=== PATIENT | female | born 1985 | race African-American/Black ===

== ENCOUNTER 2021-03-12 11:19 | Emergency (ER) | payer BC, OTHER ==
[~2021-03-12] VITALS: Ht 165.1 cm; Wt 91.6 kg
--- NOTE | 2021-03-12 11:26 | NUR ---
ARRIVAL PT ARRIVED TO ED WITH C/O WORRY FOR ECTOPIC . PT REPORTS ON FEB 01 2020 SHE HAD AN ECTOPIC WITH RIGHT FALLOPIAN TUBE REMOVED. PT REPORTS SHE HAS SINCE HAD 2 POSITIVE HOME TESTS. PT DENIES ANY PAIN, DISCOMFORT, OR VAGINAL BLEEDING. BEDSIDE MONITORS APPLIED. VITAL SIGNS STABLE. BED IN LOW LOCKED POSITION.
[2021-03-12 11:41] VITALS: BP 139/101
[2021-03-12 11:46] VITALS: BP 139/101
--- NOTE | 2021-03-12 12:12 | ER.PDOC ---
General Chief Complaint: Female Urogenital Problems Stated Complaint: FEMALE Time seen by MD: 12:07 Source: patient Exam Limitations: no limitations History of Present Illness Initial Comments Patient had a positive test at home and came here requesting for an ultrasound to rule out an ectopic. She said her last was an ectopic and she wants to make sure this one is not also an ectopic. She does not have abdominal pain or vaginal bleeding. She just wants an OB ultrasound for checkup. Associated Symptoms: denies symptoms Allergies: Coded Allergies: No Known Allergies (Unverified , 03/12/21) Past Medical History Medical History: other Surgical History: other Family History Significant Family History: no pertinent family hx Social History Alcohol Use: occassionally Drug Use: none Review of Systems Constitutional: no symptoms reported EENTM: no symptoms reported Respiratory: no symptoms reported Cardiovascular: no symptoms reported Gastrointestinal: see HPI All Other Systems: Reviewed and Negative Physical Exam General Appearance: No Apparent Distress, WD/WN Neck: nml inspection, non-tender Cardiovascular/Respiratory: Regular Rate, Rhythm, No M/R/G, Normal Peripheral Pulses, No JVD, Normal Breath Sounds, No Respiratory Distress Abdomen: Normal Bowel Sounds, Non Tender, Soft, No Organomegaly, No Pulsatile Mass Back: nml inspection Extremities: Normal Range of Motion, Non-Tender, Normal Inspection, No Pedal Edema, No Calf Tenderness, Normal Capillary Refill 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 ER DEPART Departure Time of Disposition: 12:11 Disposition: 01 HOME / SELF CARE / HOMELESS Impression: Primary Impression: Condition: Stable Referrals: RISA UMAÑA VISION SPECIALIST (PCP) PRIMARY CARE PROVIDER Additional Instructions: F/U with your OB Provider Duration or Time Spent with Pa: 10 min Problem Qualifiers Primary Impression: Weeks of gestation: less than 8 weeks Qualified Codes: Z3A.01 - Less than 8 weeks gestation of HU ARORA MD Mar 12, 2021 12:12
== END 2021-03-12 12:15 ==
LOC: ER 11:19
DX: Z34.91 Encounter for supervision of normal pregnancy, unspecified, first trimester (principal); Z3A.01 Less than 8 weeks gestation of pregnancy
CPT/HCPCS: 81025; 99283

== ENCOUNTER 2021-06-01 11:34 | Emergency (ER) | payer BC, MEDICAID ==
[~2021-06-01] VITALS: Ht 165.1 cm; Wt 90.7 kg
[2021-06-01 11:50] VITALS: BP 128/61
[2021-06-01 12:28] LABS: BILIRUBIN,URINE NEGATIVE (NEGATIVE); UA COLOR YELLOW
--- NOTE | 2021-06-01 12:59 | ER.PDOC ---
General Chief Complaint: less 20 wks Stated Complaint: 16 WEEKS ,VAGINAL BLEED TRAVEL OUT OF US: No Time seen by MD: 11:50 Source: patient Exam Limitations: no limitations History of Present Illness Initial Comments This 35-year-old G6, P3 black female comes in with complaint of spotting. This patient indicates that she has had spotting off and on for the whole . She has seen an GERIATRICS PHYSICIAN doctor down [facility] where she lives. She states that the OB doctor there was not worried about her light spotting. She denies actually bleeding. This is just some spotting that she finds some blood on her toilet tissue after going to the bathroom. This is not changed from anything before I am not quite sure why she came in today. Patient little bit tearful and anxious so we will just need to check the baby and make sure she is okay. She had an ultrasound done 4 weeks ago which was the 12-week ultrasound and everything was good. Patient does not know her blood type. We will have to check it here as we could not get in touch with her garnett fixer in [place]. Timing/Duration: other (Intermittent throughout the entire ) Severity: mild Associated Symptoms: other (She has had some frequency with urination but denies actual pain with urination) Allergies: Coded Allergies: No Known Allergies (Unverified , 03/12/21) Past Medical History Medical History: no pertinent history Surgical History: other Social History Smoking: non-smoker Alcohol Use: none Drug Use: none Review of Systems Genitourinary: see HPI All Other Systems: Reviewed and Negative Physical Exam General Appearance: No Apparent Distress, WD/WN EENT: eyes nml inspection Neck: Non-Tender, Full Range of Motion Respiratory: chest non-tender, lungs clear, normal breath sounds, no respiratory distress, no accessory muscle use CVS: reg rate & rhythm, no murmur, no gallop, pulses nml Gastrointestinal: Normal Bowel Sounds, No Pulsatile Mass, Non Tender, Other (I obtain heart tones at 168 beats a minute) Back: Normal Inspection Extremities: Normal Range of Motion 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, No Motor/Sensory Deficits, Alert, Normal Mood/Affect, Oriented x 3 Skin: Normal Color, Warm/Dry Lymphatic: No Adenopathy Results/Orders Results/Orders Orders - MIKIE STOCKTON MD Urinalysis (06/01/21 12:05) Abo/Rh Type (06/01/21 12:05) Urine Culture (06/01/21 12:11) Vital Signs Date Time Temp Pulse Resp B/P (MAP) Pulse Ox O2 Delivery O2 Flow Rate FiO2 06/01/21 11:50 98.8 88 18 06/01/21 11:50 98.8 88 18 98 06/01/21 11:50 98.8 88 18 128/61 (83) 98 Room Air Laboratory Tests Test 06/01/21 12:11 Urine Collection Type RANDOM Urine Color YELLOW Urine Appearance CLOUDY Urine Bilirubin NEGATIVE (NEGATIVE) Urine Ketones NEGATIVE (NEGATIVE) Urine Specific [place] >=1.030 (1.005-1.030) Urine pH 6.0 (4.5-8.0) Urine Protein 30 mg/dL (NEGATIVE) H Urine Urobilinogen 1.0 E.U./dL (0.2) Urine Nitrate NEGATIVE (NEGATIVE) Urine Leukocyte Esterase LARGE (NEGATIVE) H Urine Glucose (Auto)(UA) NEGATIVE (NEGATIVE) Urine Blood LARGE (NEGATIVE) H Urine RBC 2-5 RBC/HPF (NONE SEEN) Urine WBC TNTC WBC/HPF (0-2) H Urine Squamous Epithelial Cells MANY #/HPF (FEW) Urine Bacteria MANY (NONE SEEN) H Urine Other #/HPF Blood Bank Test 06/01/21 12:23 Blood Type O POSITIVE Progress Progress Urinalysis showed too numerous to count WBCs and nitrite positive. This is consistent with a urinary tract infection. Blood type was O+ ER DEPART Departure Time of Disposition: 13:08 Disposition: 01 HOME / SELF CARE / HOMELESS Impression: Primary Impression: UTI (urinary tract infection) during Additional Impression: Spotting affecting in second trimester Condition: Stable Referrals: PCP,UNKNOWN (PCP) PRIMARY CARE PROVIDER Duration or Time Spent with Pa: 15m Problem Qualifiers MIKIE STOCKTON MD Jun 01, 2021 12:59
== END 2021-06-01 13:15 | disposition home or self-care (01) ==
LOC: ER 11:34
DX: O23.42 Unspecified infection of urinary tract in pregnancy, second trimester (principal); Z3A.16 16 weeks gestation of pregnancy
CPT/HCPCS: 36415; 81001; 86900; 87086; 99283

== ENCOUNTER 2021-10-06 13:25 | Emergency (ER) | payer MEDICAID ==
[~2021-10-06] VITALS: Ht 167.6 cm; Wt 77.1 kg
[2021-10-06 13:42] VITALS: BP 136/99
[2021-10-06 13:52] VITALS: BP 136/99
--- NOTE | 2021-10-06 14:05 | ER.PDOC ---
General Chief Complaint: General Complaint Stated Complaint: SPOTTING Time seen by MD: 14:00 Source: patient Exam Limitations: no limitations History of Present Illness Initial Comments pelvic discomfort, recent u/s was normal Timing/Duration: yesterday Severity/Quality: mild Location of Pain: pelvic pain Vaginal Bleed: spotting LMP (females 10-50): Test: ultrasound Care: [facility] [place] History: greater than 2 months ago Contraceptive: none Associated Symptoms: abdominal pain Prior symptoms/Treatment: Similar symptoms previous Allergies: Coded Allergies: No Known Allergies (Unverified , 03/12/21) Past Medical History Medical History: no pertinent history Surgical History: other Social History Alcohol Use: none Drug Use: none Reviewed Nursing Reviewed: Vital Signs, Abn. 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, No Motor/Sensory Deficits, Alert, Normal Mood/Affect, Oriented x 3 Skin: Normal Color, Warm/Dry Lymphatic: No Adenopathy Results/Orders Results/Orders Vital Signs Date Time Temp Pulse Resp B/P (MAP) Pulse Ox O2 Delivery O2 Flow Rate FiO2 10/06/21 13:52 98.3 105 20 136/99 (111) 99 Room Air 10/06/21 13:42 98.3 105 20 10/06/21 13:42 98.3 105 20 99 Consult/PCP Time Consult/PCP Called: 15:00 Consult/PCP: DR CHIDI MCGEE Departure Time of Disposition: 15:00 Disposition: 02 SHORT TERM HOSPITAL Impression: Primary Impression: IUP (intrauterine ), incidental Condition: Stable Referrals: PCP,UNKNOWN (PCP) PRIMARY CARE PROVIDER Duration or Time Spent with Pa: 15m ISAIAH VAN MD Oct 06, 2021 14:05
--- NOTE | 2021-10-06 14:10 | NUR ---
NWTH/BSA NWTH/BSA REFUSED TRANSFER BECAUSE OF NO BEDS AT THIS TIME.
--- NOTE | 2021-10-06 14:20 | NUR ---
[facility] DR. MINAYA AT [facility] ACCEPTED PATIENT FOR TRANSFER.
--- NOTE | 2021-10-06 14:35 | NUR ---
TRANSFER REPORT/DR. VAN THIS NURSE CALLED [facility] FOR REPORT AND VERIFICATION OF TRANSFER. OB RN FADUMO STATES THAT DR. MINAYA REQUESTED PROCEDURES TO BE DONE PRIOR TO PATIENT BEING TRANSFERRED. VERBALIZED UNDERSTANDING AND VOICED WE WILL CALL BACK AFTER DISCUSSING WITH DR. VAN.
--- NOTE | 2021-10-06 14:41 | NUR ---
DR. CHIDI VAN AND DR. MINAYA DISCUSSED PATIENT STATUS. DR. MINAYA VERBALIZED TO SEND PATIENT TO [facility] AFTER PELVIC EXAM PERFORMED BY DR. VAN, NO NEED FOR ULTRASOUND.
--- NOTE | 2021-10-06 14:50 | NUR ---
DR. CARLOTA VAN AT BEDSIDE WITH PATIENT FOR EXAM.
[2021-10-06 14:59] VITALS: BP 119/67
--- NOTE | 2021-10-06 15:05 | NUR ---
REPORT CALLED REPORT CALLED TO JUST[facility] CARRERO [facility]. VERBALIZED UNDERSTANDING AND DENIES FURTHER QUESTIONS.
--- NOTE | 2021-10-06 15:11 | NUR ---
PATIENT LEFT DEPT PATIENT LEFT DEPT SAFELY WITH AT SIDE. VITALS STABLE. PATIENT GOING TO [facility] FOR FURTHER CARE.
== END 2021-10-06 15:11 | disposition short-term general hospital (02) ==
LOC: ER 13:25
DX: O26.893 Other specified pregnancy related conditions, third trimester (principal); R10.9 Unspecified abdominal pain; Z3A.34 34 weeks gestation of pregnancy
CPT/HCPCS: 99285

== ENCOUNTER 2022-03-20 20:18 | Emergency (ER) | payer MEDICAID, OTHER ==
[~2022-03-20] VITALS: Ht 166.4 cm; Wt 93.6 kg
[2022-03-20 20:45] VITALS: BP 147/88
--- NOTE | 2022-03-20 21:02 | ER.PDOC ---
General Chief Complaint: Requesting Medical Care Stated Complaint: FEMALE Time seen by MD: 21:00 Source: patient Exam Limitations: no limitations History of Present Illness Initial Comments Vaginal bleeding since this afternoon. Patient thinks that it may be her period but it worries her because she has not had a heavy period in the past. No abdominal or pelvic pain. Timing/Duration: this afternoon Severity/Quality: moderate Vaginal Bleed: heavier than periods Contraceptive: none Associated Symptoms: denies symptoms Allergies: Coded Allergies: No Known Allergies (Unverified , 03/12/21) Past Medical History Medical History: no pertinent history Surgical History: tubal Family History Significant Family History: no pertinent family hx Social History Smoking: non-smoker Alcohol Use: occassionally Drug Use: none Review of Systems Constitutional: no symptoms reported EENTM: no symptoms reported Respiratory: no symptoms reported Cardiovascular: no symptoms reported Gastrointestinal: no symptoms reported Genitourinary: see HPI All Other Systems: Reviewed and Negative Physical Exam General Appearance: No Apparent Distress, WD/WN EENT: eyes nml inspection, nml ENT inspection, pharynx nml Neck: nml inspection, non-tender Cardiovascular/Respiratory: Regular Rate, Rhythm, No M/R/G, Normal Peripheral Pulses, No JVD, Normal Breath Sounds, No Respiratory Distress Abdomen: Normal Bowel Sounds, Non Tender, Soft, No Organomegaly, No Pulsatile Mass Back: nml inspection Extremities: Normal Range of Motion, Non-Tender, Normal Inspection, No Pedal Edema, No Calf Tenderness, Normal Capillary Refill 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, No Motor/Sensory Deficits, Alert, Normal Mood/Affect, Oriented x 3 Skin: Normal Color, Warm/Dry Lymphatic: No Adenopathy Results/Orders Results/Orders Orders - HU ARORA MD Cbc With Auto Diff (03/20/22 20:44) Hcg Qualitative Serum (03/20/22 20:48) Vital Signs Date Time Temp Pulse Resp B/P (MAP) Pulse Ox O2 Delivery O2 Flow Rate FiO2 03/20/22 20:45 98.5 102 16 147/88 (107) 98 Room Air* 0 21 03/20/22 20:45 98.5 102 16 98 Laboratory Tests Test 03/20/22 21:01 White Blood Count 10.3 10^3/uL (4.5-11.0) Red Blood Count 3.94 10^6/uL (4.00-5.20) L Hemoglobin 12.7 g/dL (12.0-15.0) Hematocrit 37.7 % (36.0-46.0) Mean Corpuscular Volume 95.7 fL (78-100) Mean Corpuscular Hemoglobin 32.2 pg (26-34) Mean Corpuscular Hemoglobin Concent 33.7 g/dL (33-36.5) Red Cell Distribution Width 13.0 % (11.5-14.5) Platelet Count 298 10^3/uL (150-400) Mean Platelet Volume 9.0 fL (7.8-11.0) Neutrophils (%) (Auto) 60.9 % (41.0-85.0) Lymphocytes (%) (Auto) 30.7 % (24.0-44.0) Monocytes (%) (Auto) 6.4 % (5.0-12.0) Neutrophils # (Auto) 6.3 10^3/uL (1.8-7.7) Lymphocytes # (Auto) 3.17 10^3/uL1 (1.0-4.8) Monocytes # (Auto) 0.7 10^3/uL (0.3-0.8) Absolute Immature Granulocyte (auto 0.03 10^3 u/L (0-2) Absolute Eosinophils (auto) 0.1 10^3/uL (0.0-0.2) Immature Granulocytes % 0.30 % (0.00-0.50) Eosinophils % 1.4 % (0.0-5.0) Basophils % 0.3 % (0.0-0.2) H Basophils # 0.0 10^3/uL (0.0-0.1) Serum HCG, Qualitative POSITIVE (NEGATIVE) Progress Progress hCG is positive. Hemoglobin is 12.7. I wanted to order more testing including transvaginal ultrasound to rule out ectopic and any other causes of vaginal bleeding in . Patient refused because he had to go home and do some thing. She signed and left AGAINST MEDICAL ADVICE telling me that she will follow-up with her OB provider tomorrow. She understands that leaving AGAINST MEDICAL ADVICE may result in worsening condition, increased bleeding, hypovolemic shock and . I told her to return to the ED at any time. ER DEPART Departure Time of Disposition: 21:49 Disposition: 07 LEFT AGAINST MEDICAL ADVICE Impression: Primary Impression: Vaginal bleeding before 22 weeks gestation Condition: Against Medical Advice Referrals: CHI ARANA (PCP) PRIMARY CARE PROVIDER Duration or Time Spent with Pa: 20 min HU ARORA MD Mar 20, 2022 21:02
[2022-03-20 21:18] LABS: BASOPHIL % 0.3 % (0.0-0.2); EOSINOPHIL # 0.1 10^3/uL (0.0-0.2); EOSINOPHIL % 1.4 % (0.0-5.0); LYMPHOCYTES # 3.17 10^3/uL1 (1.0-4.8); LYMPHOCYTES % 30.7 % (24.0-44.0); MEAN CORP HGB 32.2 pg (26-34); MONOCYTES # 0.7 10^3/uL (0.3-0.8); MONOCYTES % 6.4 % (5.0-12.0); NEUTROPHIL # 6.3 10^3/uL (1.8-7.7); NEUTROPHILS % 60.9 % (41.0-85.0); PLATELET COUNT 298 10^3/uL (150-400)
--- NOTE | 2022-03-20 21:55 | NUR ---
2147 Dr. nakita ARORA informed pt of positive test. offered sonogram, pt refused songram pt left AMA sated she is going to [facility] in [place].
== END 2022-03-20 21:47 | disposition left against medical advice (07) ==
LOC: ER 20:18
DX: O46.92 Antepartum hemorrhage, unspecified, second trimester (principal); Z3A.00 Weeks of gestation of pregnancy not specified; F10.20 Alcohol dependence, uncomplicated
CPT/HCPCS: 36415; 84703; 85025; 99283

== ENCOUNTER 2024-02-28 09:54 | Emergency (ER) | payer OTHER ==
[~2024-02-28] VITALS: Ht 165.1 cm; Wt 97.1 kg
[2024-02-28 09:54] VITALS: BP 146/91; PULSE 91; RESP 16; TEMP 98; O2SAT 98
[2024-02-28 10:20] LABS: BILIRUBIN,URINE NEGATIVE (NEGATIVE)
[2024-02-28 10:21] LABS: LEUKOCYTE ESTERASE ,URINE 2+ (NEGATIVE); NITRATE,URINE NEGATIVE (NEGATIVE); UROBILINOGEN,URINE 0.2 E.U./dL (0.2)
[2024-02-28 10:25] LABS: APPEARANCE,URINE CLEAR; UA COLOR YELLOW
[2024-02-28] MEDS ORDERED: TORADOL ONE ×2 (10:34→11:38)
[2024-02-28 10:36] LABS: BASOPHIL % 0.4 % (0.0-0.2); EOSINOPHIL # 0.1 10^3/uL (0.0-0.2); EOSINOPHIL % 1.1 % (0.0-5.0); HEMATOCRIT(ML) 35.8 % (36.0-46.0); HEMOGLOBIN 11.6 g/dL (12.0-15.0); IG % 0.2 % (0.00-0.50); LYMPHOCYTES # 2.57 10^3/uL1 (1.0-4.8); LYMPHOCYTES % 24.9 % (24.0-44.0); MEAN CORP HGB 28.8 pg (26-34); MEAN CORP HGB CONCENTRATION 32.4 g/dL (33-36.5); MEAN CORP VOLUME 88.8 fL (78-100); MONOCYTES # 0.8 10^3/uL (0.3-0.8); MONOCYTES % 8.1 % (5.0-12.0); NEUTROPHIL # 6.7 10^3/uL (1.8-7.7); NEUTROPHILS % 65.3 % (41.0-85.0); RED BLOOD CELL 4.03 10^6/uL (4.00-5.20); WHITE BLOOD CELL 10.3 10^3/uL (4.5-11.0)
[2024-02-28 10:51] LABS: INR 0.9; PROTHROMBIN PROTIME 9.8 SEC (9.7-11.6)
[2024-02-28] MEDS: TORADOL IV STA ×2 (10:55→11:46)
[2024-02-28 10:56] VITALS: BP 126/88; PULSE 90; RESP 16; TEMP 98; O2SAT 98
[2024-02-28 11:25] LABS: ALBUMIN(ML) 3.6 g/dL (3.4-5.0); ALBUMIN/GLOBULIN RATIO 0.878; BUN/CREATININE RATIO 7.44 (10.0-20.0); CALCIUM 9.3 mg/dL (8.4-10.5); CREATININE SERUM 0.94 mg/dL (0.59-1.40); EST GFR, NON-AA 66.6 (>/=60)
[2024-02-28 11:32] VITALS: BP 126/88; PULSE 78; RESP 16; TEMP 98; O2SAT 98
[2024-02-28] MEDS ORDERED: ROCEPHIN ONE (11:38)
[2024-02-28] MEDS ORDERED: FLOMAX PO ONE (11:38)
[2024-02-28] MEDS ORDERED: ZOFRAN ONE (11:38)
[2024-02-28] MEDS ORDERED: NS 100ML 100 ML IV ONE (11:39)
[2024-02-28] MEDS ORDERED: KETO10TA PO (11:40)
[2024-02-28] MEDS ORDERED: NITR100C58 PO (11:40)
[2024-02-28] MEDS ORDERED: TAMS-14 PO (11:40)
[2024-02-28] MEDS: ZOFRAN IV STA (11:46)
[2024-02-28] MEDS: FLOMAX PO STA (11:46)
[2024-02-28] MEDS: ROCEPHIN 2,000 MG in NS 100ML 100 ML IV STA (11:47)
[2024-02-28 11:55] VITALS: BP 127/83; PULSE 75; RESP 16; TEMP 98; O2SAT 96
== END 2024-02-28 12:00 | disposition home or self-care (01) ==
LOC: ER 09:54
DX: N20.0 Calculus of kidney (principal); N39.0 Urinary tract infection, site not specified
CPT/HCPCS: 99285; 74176; 96374; 96375; 96376; 87086; 80053; 85025; 36415; 81001; 81025; 83690; 85610; 85730; 87077; 87186; J0696 ×2; J2405; J1885 ×2; J8499